=== PATIENT | female | born 1985 | race Caucasian/White ===

== ENCOUNTER 2017-06-02 16:33 | Emergency (ER) | payer BC ==
[2017-06-02 16:42] VITALS: BP 113/74; PULSE 82; TEMP 98.3; BMI 21.9
--- NOTE | 2017-06-02 17:28 | PDOC ---
History of Present Illness - General History Source: Patient Exam Limitations: No Limitations - History of Present Illness Initial Comments: 06/02/17 18:03 The patient is a 31 year old female, with a significant past medical history of Hypothyroidism who presents to the emergency department with chest pressure for the past 2 days. Patient states her discomfort began 2 days ago, gradual onset with no associated SOB, nausea or vomiting. Patient states her Thyroid medications were recently adjusted. <Kaci David - Last Filed: 06/02/17 18:02> <Elvira De Leon - Last Filed: 06/06/17 14:15> - General Chief Complaint: Chest Pain Stated Complaint: CHEST PRESSURE Time Seen by Provider: 06/02/17 17:22 Past History <Kaci David - Last Filed: 06/02/17 18:02> - Past Medical History Thyroid Disease: Yes - Suicide/Smoking/Psychosocial Hx Smoking History: Never smoked Have you smoked in the past 12 months: No Information on smoking cessation initiated: No Hx Alcohol Use: No Drug/Substance Use Hx: No Substance Use Type: None <Elvira De Leon - Last Filed: 06/06/17 14:15> - Past Medical History Allergies/Adverse Reactions: Allergies Allergy/AdvReac Type Severity Reaction Status Date / Time No Known Allergies Allergy Verified 06/02/17 16:39 Home Medications: Ambulatory Orders NK [No Known Home Medication] 06/04/17 Review of Systems - Review of Systems Able to Perform ROS?: Yes Comments:: 06/02/17 18:03 GENERAL/CONSTITUTIONAL: No fever or chills. No weakness. HEAD, EYES, EARS, NOSE AND THROAT: No change in vision. No ear pain or discharge. No sore throat. GASTROINTESTINAL: No nausea, vomiting, diarrhea or constipation. GENITOURINARY: No dysuria, frequency, or change in urination. CARDIOVASCULAR: +chest pain. No shortness of breath. RESPIRATORY: No cough, wheezing, or hemoptysis. MUSCULOSKELETAL: No joint or muscle swelling or pain. No neck or back pain. SKIN: No rash NEUROLOGIC: No headache, vertigo, loss of consciousness, or change in strength/ sensation. ENDOCRINE: No increased thirst. No abnormal weight change. HEMATOLOGIC/LYMPHATIC: No anemia, easy bleeding, or history of blood clots. ALLERGIC/IMMUNOLOGIC: No hives or skin allergy. <Kaci David - Last Filed: 06/02/17 18:02> *Physical Exam - Vital Signs Last Vital Signs Temp Pulse Resp BP Pulse Ox 98.3 F 82 18 113/74 100 06/02/17 16:40 06/02/17 16:40 06/02/17 16:40 06/02/17 16:40 06/02/17 16:40 - Physical Exam Comments: 06/02/17 18:03 GENERAL: Awake, alert, and fully oriented, in no acute distress HEAD: No signs of trauma EYES: PERRLA, EOMI, sclera anicteric, conjunctiva clear ENT: Auricles normal inspection, hearing grossly normal, nares patent, oropharynx clear without exudates. Moist mucosa NECK: Normal ROM, supple, no lymphadenopathy, JVD, or masses LUNGS: Breath sounds equal, clear to auscultation bilaterally. No wheezes, and no crackles HEART: Regular rate and rhythm, normal S1 and S2, no murmurs, rubs or gallops ABDOMEN: Soft, nontender, normoactive bowel sounds. No guarding, no rebound. No masses EXTREMITIES: Normal range of motion, no edema. No clubbing or cyanosis. No cords, erythema, or tenderness NEUROLOGICAL: Cranial nerves II through XII grossly intact. Normal speech, normal gait SKIN: Warm, Dry, normal turgor, no rashes or lesions noted. <Kaci David - Last Filed: 06/02/17 18:02> - Vital Signs Last Vital Signs Temp Pulse Resp BP Pulse Ox 98.3 F 82 18 113/74 100 06/02/17 16:40 06/02/17 16:40 06/02/17 16:40 06/02/17 16:40 06/02/17 16:40 <Elvira De Leon - Last Filed: 06/06/17 14:15> Heart Score/ECG Review - History History: Slightly suspicious - Electrocardiogram EKG: Non specific repolarization disturbance - Age Age: </= 43 - Risk Factors Based on the list above the patient has:: No risk factors known - ECG Intrepretation Comment:: 06/02/17 17:39 sinus at 70, nl axis, nl interval, t wave inversions v2 <Elvira De Leon - Last Filed: 06/06/17 14:15> ED Treatment Course - LABORATORY CBC & Chemistry Diagram: 06/02/17 17:45 06/02/17 17:45 <Kaci David - Last Filed: 06/02/17 18:02> - LABORATORY CBC & Chemistry Diagram: 06/02/17 17:45 06/02/17 17:45 <Elvira De Leon - Last Filed: 06/06/17 14:15> Medical Decision Making - Medical Decision Making 06/06/17 14:14 a/p: 31yo female with atypical cp -no risk factors -recently changing levothyroxine dose - decreasing dose. suspect poss cp from medication induced Hyperthyroid -cxr to r/o cardiomegaly -labs -repeat ekg -reassess Pt signed out to the oncoming ED physician pending lab results. <Elvira De Leon - Last Filed: 06/06/17 14:15> *DC/Admit/Observation/Transfer - Attestations Scribe Attestion: 06/02/17 18:04 Documentation prepared by Kaci David, acting as medical esthetician for Elvira De Leon DO <Kaci David - Last Filed: 06/02/17 18:02> <Elvira De Leon - Last Filed: 06/06/17 14:15> Diagnosis at time of Disposition: Hypothyroidism Chest pain Qualifiers: Chest pain type: unspecified Qualified Code(s): R07.9 - Chest pain, unspecified - Discharge Dispostion Disposition: HOME Condition at time of disposition: Stable - Referrals Referrals: Angelina Rodrigues MD [Primary Care Provider] - - Patient Instructions Printed Discharge Instructions: DI for Chest Pain, DI for Hypothyroidism
[2017-06-02 17:54] LABS: BASOPHIL 1.3 % (0-2.0); EOSINOPHIL 1.3 % (0-4.5); MCH 29.1 pg (25.7-33.7); MCHC 33.4 g/dl (32.0-36.0); MEAN PLT VOLUME 9.5 fl (7.5-11.1); NEUTROPHILS 61.2 % (42.8-82.8); PLATELET COUNT 195 K/MM3 (134-434); RDW 13.3 % (11.6-15.6)
[2017-06-02 18:40] LABS: ALBUMIN 3.9 g/dl (3.4-5.0); ANION GAP 8 (8-16); BILIRUBIN,TOTAL 0.5 mg/dL (0.2-1.0); CO2 28 mmol/L (21-32); CREATININE 0.5 mg/dL (0.55-1.02); GLUCOSE,RANDOM 84 mg/dL (74-106); MAGNESIUM 2.1 mg/dL (1.8-2.4); SGOT/AST 11 U/L (15-37); SGPT/ALT 21 U/L (12-78); TOT PROT 7.3 g/dl (6.4-8.2)
[2017-06-02 18:42] LABS: ALK PHOS 49 U/L (45-117); CPK 23 IU/L (26-192); TROPONIN I < 0.02 ng/ml (0.00-0.05)
--- NOTE | 2017-06-02 20:18 | PDOC ---
*Physical Exam - Vital Signs Last Vital Signs Temp Pulse Resp BP Pulse Ox 98.3 F 82 18 113/74 100 06/02/17 16:40 06/02/17 16:40 06/02/17 16:40 06/02/17 16:40 06/02/17 16:40 ED Treatment Course - LABORATORY CBC & Chemistry Diagram: 06/02/17 17:45 06/02/17 17:45 - ADDITIONAL ORDERS Additional order review: Laboratory Results 06/02/17 06/02/17 18:10 17:45 Sodium 138 Potassium 3.8 Chloride 102 Carbon Dioxide 28 Anion Gap 8 BUN 12 Creatinine 0.5 L Creat Clearance w eGFR > 60 Random Glucose 84 Calcium 9.0 Magnesium 2.1 Total Bilirubin 0.5 AST 11 L ALT 21 Alkaline Phosphatase 49 Creatine Kinase 23 L Troponin I < 0.02 Total Protein 7.3 Albumin 3.9 Beta HCG, Quant < 1.0 06/02/17 17:45 RBC 4.12 MCV 87.0 MCHC 33.4 RDW 13.3 MPV 9.5 Neutrophils % 61.2 Lymphocytes % 24.5 Monocytes % 11.7 H Eosinophils % 1.3 Basophils % 1.3 *DC/Admit/Observation/Transfer Diagnosis at time of Disposition: Hypothyroidism Chest pain Qualifiers: Chest pain type: unspecified Qualified Code(s): R07.9 - Chest pain, unspecified - Discharge Dispostion Disposition: HOME Condition at time of disposition: Stable Admit: No - Referrals Referrals: Angelina Rodrigues MD [Primary Care Provider] - - Patient Instructions Printed Discharge Instructions: DI for Chest Pain, DI for Hypothyroidism - Post Discharge Activity
[2017-06-02 22:30] LABS: THYROID STIMULATING HORMONE 0.04 uIU/ml (0.358-3.74)
--- NOTE | 2017-06-07 09:48 | EKG ---
Test Reason : Blood Pressure : / mmHG Vent. Rate : 070 BPM Atrial Rate : 070 BPM P-R Int : 156 ms QRS Dur : 084 ms QT Int : 388 ms P-R-T Axes : 041 090 068 degrees QTc Int : 419 ms NORMAL SINUS RHYTHM RIGHTWARD AXIS BORDERLINE ECG NO PREVIOUS ECGS AVAILABLE Confirmed by FEI NEW, BERT ([id number]) on 06/07/2017 9:48:24 AM Referred By: Confirmed By:BERT ENAMORADO MD
== END 2017-06-02 20:26 | disposition home or self-care (01) ==
LOC: JER 16:33
DX: R07.9 Chest pain, unspecified (principal); E03.9 Hypothyroidism, unspecified
CPT/HCPCS: 36415; 71020-TC; 80053; 83735; 84439; 84443; 84484; 84702; 85025; 93005; 93010; 99282-25